=== PATIENT | male | born 1950 | race Caucasian/White ===

== ENCOUNTER 2020-03-05 07:09 | Outpatient (REF) | payer BC, SELFPAY | END 2020-03-05 07:10 | disposition home or self-care (01) | LOC: HO.LAB 07:09 | PROVIDERS: PCP Hospitalist; Visit Provider Internal Medicine | DX: Z20.828 Contact with and (suspected) exposure to other viral communicable diseases (principal) | CPT/HCPCS: C9803; U0003 ==

== ENCOUNTER 2020-03-18 09:28 | Outpatient (REF) | payer BC, SELFPAY | END 2020-03-18 09:29 | disposition home or self-care (01) | LOC: HO.LAB 09:28 | PROVIDERS: PCP Hospitalist; Visit Provider Internal Medicine | DX: Z20.822 Contact with and (suspected) exposure to COVID-19 (principal) | CPT/HCPCS: 36415; C9803; U0003 ==

== ENCOUNTER 2024-02-22 13:52 | Outpatient (AMB) | payer MEDICARE, SELFPAY ==
--- NOTE | 2024-02-22 14:08 | AM.OFFWIN_ITS ---
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 Patient Tobacco Use Status: Never used Tobacco Allergies No Known Allergies Allergy (Unverified 02/22/24 14:14) Do you need a note to return to daycare/school/sports/work: No HPI CONTROLLER COAL OR ORE Lower LT jaw pin HPI Details 73-year-old male presents to the office for a sick visit. For the past 6 weeks or so patient is experiencing shooting pain on the left side of the face around the jaw. The pain comes in bursts. Mostly associated with chewing or moving the head to a particular position. He was initially seen by a dentist and any teeth infection has been ruled out. Subsequently he had his wisdom tooth removed and patient tolerated the procedure well. However he continues to have this shooting pain. No associated tearing of the left eye. He sometimes has difficulty chewing and chews on the right side. No difficulty swallowing. No vision changes. On a different note, patient gives history of ADHD and is on clonazepam for a psychiatrist. He does not have a primary care provider. [facility] Social History Patient Tobacco Use Status: Never used Tobacco Physical Exam Vital Signs: Last Vital Signs Pulse 62 02/22/24 14:14 BP 112/80 02/22/24 14:14 Pulse Ox 96 02/22/24 14:14 Oxygen Delivery Method Room Air 02/22/24 14:14 BMI result Body Mass Index 26.7 Const General: cooperative and healthy appearing Nutritional Appearance: well nourished Orientation/consciousness: patient oriented x3 Limitations: no limitations HEENT Other: Face: On tapping, the left temporal side no triggers of pain elicited. Patient able to move his jaw sideways, open and close his jaw without any discomfort. Head: Yes normal to inspection Eyes General: appearance normal, both eyes and all related structures Neck Neck: Yes normal visual inspection Chest Chest palpation & inspection: normal palpation of entire chest wall Resp Effort & Inspection: normal respiratory effort Neuro General: patient oriented x3 Assessment & Plan Assessment & Plan (1) Jaw pain: Code(s): R68.84 - Jaw pain Plan: Possibilities include musculoskeletal or possibility of trigeminal neuralgia. Prescription for meloxicam and cyclobenzaprine given. Advised him to follow-up in my office in 2 weeks and I will make an attempt to get him a primary care provider. Coding Level of Care Code Est Pt Level 4 (64926) Diagnoses Jaw pain R68.84
[2024-02-22 14:14] VITALS: BP 112/80; PULSE 62; O2SAT 96; BMI 26.7
== END 2024-02-22 15:01 | disposition home or self-care (01) ==
PROVIDERS: Visit Provider Internal Medicine
DX: R68.84 Jaw pain (principal)

== ENCOUNTER → 2024-02-22 13:52 | Outpatient (BNVA) | payer MEDICARE, SELFPAY | PROVIDERS: Visit Provider Internal Medicine | DX: R68.84 Jaw pain (principal) | CPT/HCPCS: 99212 ==

== ENCOUNTER 2024-03-06 09:53 | Outpatient (AMB) | payer MEDICARE, SELFPAY ==
--- NOTE | 2024-03-06 10:23 | A.OFFPC_ITS ---
Vital Signs 03/06/24 10:24 Height 5 ft 9 in Weight 179 lb 2 oz BMI 26.4 BP 100/64 Blood Pressure Location Lt brachial Position Sitting Pulse 86 Pulse Source Pulse Oximeter Pulse Oximetry (%) 98 Oxygen Delivery Method Room Air Intake Visit Reasons: establish care/ 2 week follow up Intake Note: Patient is a new patient here to establish care for Glaucoma, Cholesterol, ADD. Transferring care from Dr Kunal Enriquez ([facility]). Medical records have not been requested and have not received. Pt decline flu shot today. Lens Generator Required: No Metal Bending Machine Operator: Not Required per policy Accompanied by: Self / Same As Patient Allergies [id number] Reductase Inhibitor Allergy (Severe, Verified 03/06/24 10:29) Foot pain Medication List - Last Reconciled 03/06/24 by Babak Duong MD clonazepam 1 mg PO BEDTIME PRN dextroamphetamine-amphetamine 30 mg 1 tab PO BID latanoprost 0.005% 1 drp ophthalmic (eye) BEDTIME timolol maleate 0.5% 1 drp ophthalmic (eye) BID trazodone 100 mg PO BEDTIME PRN Tobacco use date assessed: 03/06/24 Fall risk assessment: No Falls in past year Last assessed Fall Risk: 03/06/24 Dental Screening Dental Screen Date: 03/06/24 Did you have a dental visit in the last 12 months?: Yes Did you have a dental problem in the last 6 months where you did not have access to dental care?: No Was dental information given to patient?: Patient has dentist HPI establish care/ 2 week follow up HPI Details 73 yr old female presents to the office for a follow up visit. He wishes to establish primary care here. He is also here follow up on his jaw pain. Did not take the muscle relaxants. Feels there is no improvements in his symptoms. [facility] Surgical History (Updated 03/06/24 @ 10:33 by POLINA Hernández) History of tonsillectomy Social History (Updated 03/06/24 @ 10:23 by POLINA Hernández) Housing: House Alcohol intake: never Patient Tobacco Use Status: Never used Tobacco e-Cigarette/Vaping Use: Never Used Second Hand Smoke Exposure: No service: No Current occupational status: retired Cognitive needs: No Hearing needs: No Vision needs: Yes (Reading glasses) Questionnaire PHQ-9 Over the last 2 weeks, how often have you been bothered by any of the following problems? 1. Little interest or pleasure in doing things: not at all 2. Feeling down, depressed, or hopeless: not at all 3. Trouble falling or staying asleep, or sleeping too much: not at all 4. Feeling tired or having little energy: not at all 5. Poor appetite or overeating: not at all 6. Feeling bad about yourself - or that you are a failure or have let yourself or your family down: not at all 7. Trouble concentrating on things, such as reading the newspaper or watching television: not at all 8. Moving or speaking so slowly that other people could have noticed. Or the opposite - being so fidgety or restless that you have been moving around a lot more than usual: not at all 9. Thoughts that you would be better off or of hurting yourself in some way: not at all Total score: 0 Depression Screening Interpretation: Negative Depression Screening Done: Yes Source: Developed by Drs. Harry Hutchison, Mayuri Bryson, Abimael Rogers and colleagues, with an educational nena from [employer]. Thrive Questionnaire Date Thrive assessed: 03/06/24 I am a: Patient What is your living situation today?: I have a steady place to live Within the past 12 months, did the food you bought not last and you didn't have the money to get more?: Never true Within the past 12 months, did you worry whether your food would run out before you got money to buy more?: Never true Do you have trouble paying for medicines?: No Do you have trouble getting transportation to medical appointments?: No Do you have trouble paying your heating and electricity bill?: No Do you have trouble taking care of your child, family member or friend?: No Do you have trouble with day-to-day activities such as bathing, preparing meals, shopping, managing finances, etc.?: No Are you currently unemployed and looking for a job?: No Are you interested in more education?: No Please select the resources that you would like help with: None Currently or been in a relationship where the following occur: No concerns reported THRIVE Score: 0 AUDIT C Alcohol Use Questionnaire (AUDIT-C) 1. How often do you have a drink containing alcohol?: Never 2. How many drinks containing alcohol do you have on a typical day when you are drinking?: 1 or 2 3. How often do you have six or more drinks on one occasion?: Never Total Score: 0 HERNÁN-7 AMB Questionnaire HERNÁN-7 Date HERNÁN - 7 assessed: 03/06/24 Feeling nervous, anxious, or on edge: 0 = Not at all Not being able to stop or control worryin = Not at all Worrying too much about different things: 0 = Not at all Trouble relaxin = Not at all Being so restless that it is hard to sit still: 0 = Not at all Becoming easily annoyed or irritable: 0 = Not at all Feeling afraid as if something awful might happen: 0 = Not at all Total HERNÁN-7 score (0-4 normal; 5-9 mild; 10-14 moderate; 15-21 severe): 0 Source: Developed by Drs. Harry Hutchison, Mayuri Bryson, Abimael Rogers and colleagues, with an educational nena from [employer]. Physical exam (Primary Care) Vital Signs: Last Vital Signs Pulse 86 03/06/24 10:24 BP 100/64 03/06/24 10:24 Pulse Ox 98 03/06/24 10:24 Oxygen Delivery Method Room Air 03/06/24 10:24 BMI result Body Mass Index 26.4 Tobacco/Smoking Status: Tobacco use Status Tobacco use date assessed 03/06/24 03/06/24 10:34 Patient Tobacco Use Status Never used Tobacco 03/06/24 10:34 e-Cigarette/Vaping Use Never Used 03/06/24 10:34 PHQ-9: PHQ-9 Score PHQ-9: Total score 0 03/06/24 10:35 Depression Screening Interpretation: Negative Thrive Assessment: Date of Thrive Assessment Date Thrive assessed 03/06/24 03/06/24 10:34 Currently or been in a relationship where the following occur: No concerns reported Coding Level of Care Code Est Pt Level 3 (88160) Complex EM visit Add On G2211 Diagnoses Trigeminal neuralgia of left side of face G50.0 Assessment & Plan Assessment & Plan (1) Trigeminal neuralgia of left side of face: Code(s): G50.0 - Trigeminal neuralgia Plan: Patient very sensitive to medications. A neurology appt to be obtained before starting any empiric treatment.
[2024-03-06 10:24] VITALS: BP 100/64; PULSE 86; O2SAT 98; BMI 26.4
== END 2024-03-06 11:14 | disposition home or self-care (01) ==
PROVIDERS: Visit Provider Internal Medicine
DX: G50.0 Trigeminal neuralgia (principal)

== ENCOUNTER → 2024-03-06 09:53 | Outpatient (BNVA) | payer MEDICARE, SELFPAY | PROVIDERS: Visit Provider Internal Medicine | DX: G50.0 Trigeminal neuralgia (principal) | CPT/HCPCS: 96127; 99212 ==

== ENCOUNTER → 2024-04-13 08:02 | Outpatient (BNVA) | DX: G50.0 Trigeminal neuralgia (principal) | CPT/HCPCS: 96127 ==

== ENCOUNTER 2024-09-12 09:33 | Outpatient (AMB) | payer MEDICARE, SELFPAY ==
--- NOTE | 2024-09-12 09:44 | A.OFFVIS_ITS ---
Vital Signs 09/12/24 09:48 Height 5 ft 9 in Weight 167 lb BMI 24.7 BP 110/76 Blood Pressure Location Rt brachial Position Sitting Pulse 92 Pulse Source Pulse Oximeter Pulse Oximetry (%) 97 Oxygen Delivery Method Room Air Intake Visit Reasons: colo screen Intake Note: New pt for colo consult, recall. Last colo 2004?? CC; Pt denies any GI sx or concerns at this time. Legal Consultant Required: No Accompanied by: Self / Same As Patient Allergies Kiohvlq-DEK-HtP Reductase Inhibitor Allergy (Severe, Verified 04/13/24 08:59) Foot pain HPI HPI colo screen: Details: 74 year old? male with past medical history of hyperlipidemia, adult ADHD is here today for pre colonoscopy screening.? Patient was sent to us by his PCP.? Last colonoscopy was over 10 years ago at [facility]. History of to colonoscopy i n the past Patient denies any gastrointestinal symptoms in the past or at present.? Patient does admit to her have occasional constipation and uses MiraLax as needed. Denies any personal or family history of gastrointestinal disease, colon polyps, or CRC.? Denies history of difficulty with sedation or anesthesia in the past.? Negative for history of sleep apnea.? Denies any history of cardiac, renal, pulmonary, or hepatic disease.?? No history of infectious diseases like hepatitis A, B, C, HIV or tuberculosis.? Patient is not on any anticoagulation [facility] Medical History (Updated 09/12/24 @ 09:56 by Trang Merida, [facility]) ADHD, adult residual type Hyperlipidemia Trigeminal neuralgia of left side of face Surgical History History of tonsillectomy Social History Housing: House Alcohol intake: never Patient Tobacco Use Status: Never used Tobacco e-Cigarette/Vaping Use: Never Used Second Hand Smoke Exposure: No service: No Current occupational status: retired Cognitive needs: No Hearing needs: No Vision needs: Yes (Reading glasses) Review of Systems Const Denies weight gain and Denies weight loss ENT Reports no additional complaints, Denies dysphagia and Denies odynophagia Card Reports no additional complaints Resp Reports no additional complaints GI Denies abdominal pain, Denies belching, Denies melena, Denies bloating, Denies change in bowel habits, Denies dysphagia, Denies excessive flatus, Denies dyspepsia, Denies heartburn, Denies diarrhea, Denies loose stools, Denies nausea, Denies odynophagia and Denies vomiting Reports no additional complaints Musc Reports no additional complaints Neuro Reports no additional complaints Psych Reports no additional complaints Endo Reports no additional complaints Physical Exam Vital Signs: Last Vital Signs Pulse 92 09/12/24 09:48 BP 110/76 09/12/24 09:48 Pulse Ox 97 09/12/24 09:48 Oxygen Delivery Method Room Air 09/12/24 09:48 BMI result Body Mass Index 24.7 Const General: healthy appearing, no acute distress and well developed Nutritional Appearance: well nourished Orientation/consciousness: patient oriented x3 Resp Effort & Inspection: normal respiratory effort, able to speak in complete sentences, no tracheal deviation and symmetric chest movement Auscultation: clear to auscultation bilaterally Cardio Rate: regular rate GI Inspection: Yes normal to inspection and No distended Palpation (GI): Soft to palpation, not firm, nontender and No hepatosplenomegaly present Auscultation: normal bowel sounds General: Yes no CVA tenderness Back/Spine/Pelvis Back: no CVA tenderness Skin General skin exam: elasticity normal, turgor normal and dry skin Neuro General: patient oriented x3 Psych Appearance: grossly normal Mental Status: mental status grossly normal Assessment & Plan Assessment & Plan (1) Screen for colon cancer: Code(s): Z12.11 - Encounter for screening for malignant neoplasm of colon Plan Patient denies any GI, cardiac or respiratory symptoms.? Occasional constipation, uses MiraLax as needed. We will send Dulcolax prior to procedure and patient can take it 1 week before to help her move his bowels better. Denies any issues with anesthesia in the past.? Denies any history of sleep apnea.? No history infectious diseases in the past or present.? Not on any anticoagulation therapy.? No family or personal history of colon cancer or polyps.? Patient denies melena, hematochezia, unintentional weight loss or ribbon like stools.? Discussed at length the pre-procedure,? prep, diet & medications as well as what to expect prior, during and after the procedure.?? Stressed the importance of good bowel prep.? Recommended the use of Vaseline or Calmoseptine OTC & baby wipes with bowel movements to promote comfort.? ?Patient verbalizes understanding and agrees to plan of care.? He was given the opportunity to ask questions and all questions answered.? We will see him after the procedure.? Medications: New bisacodyl (Dulcolax (bisacodyl)) Start taking 2 tablet every night 7 days before the procedure and 1 day before procedure take 4 tablets at noon time followed by MiraLax prep 10 mg (2 x 5 mg) PO BEDTIME 16 tabs 0RF Z12.11 - Encounter for screening for malignant neoplasm of colon polyethylene glycol 3350 (Miralax) As directed by gastroenterology department at [facility] 238 grams PO ONCE 238 grams 0RF Z12.11 - Encounter for screening for malignant neoplasm of colon Coding Level of Care Code New Pt Level 3 (01527) Diagnoses Screen for colon cancer Z12.11 Time Spent (min) 40 Comment 30 minutes spent with patient and additional 10 minutes spent reviewing his records
[2024-09-12 09:48] VITALS: BP 110/76; PULSE 92; O2SAT 97; BMI 24.7
--- OUTSIDE RECORDS SUMMARY | 2024-09-12 10:02 | XMS_ITS | Clinical Summary ---
Author Organization [facility] Address [address] [place] [address] Phone Care Team Providers Care Developer Relations Manager Name Role Phone Unavailable Primary Care Provider Unavailabl e Social History Tobacco Use Types Packs/Day Years Used Date Smoking Tobacco: Never Assessed Sex and Gender Information Value Date Recorded Sex Assigned at Not on file Legal Sex Male 10:49 AM EST Gender Identity Not on file Sexual Orientation Not on file Last Filed Vital Signs Vital Sign Reading Time Taken Comments Blood Pressure - - Pulse - - Temperature - - Respiratory Rate - - Oxygen Saturation - - Inhaled Oxygen Concentration - - Weight 80.7 kg (178 lb) 03/19/2024 11:40 AM EST Height - - Body Mass Index - - Plan of Treatment Health Maintenance Due Date Last Done Comments DTaP,Tdap,and Td Vaccines (1 - Tdap) 05/22/1971 Pneumococcal Vaccine: 50+ Years (1 of 1 - PCV) 2002 Zoster Vaccines (1 of 2) 2002 COVID-19 Vaccine (3 - 2023-2 5 season) 2023 10/29/2020, 10/08/2020 Abdominal Aortic Aneurysm (AAA) Screen 03/19/2024 Cholesterol Screening (Lipid Panel) 03/19/2024 Colorectal Cancer Screening: Colonoscopy 03/19/2024 Depression Screening 03/19/2024 Falls Risk Assessment 03/19/2024 Hepatitis C Screening 03/19/2024 Medicare Annual Wellness Visit 03/19/2024 Social Influencers of Health Screening 03/19/2024 Influenza Vaccine (#1) 2024 04/04/2013 RSV Immunization Adult Patients (1 - 1-dose 75+ series) 05/22/2027 HIB Vaccines Aged Out No longer eligi ble based on patient's age to complete this topic HPV Vaccines Aged Out No longer eligi ble based on patient's age to complete this topic Hepatitis A Vaccines Aged Out No long er eligible based on patient's age to complete this topic Hepatitis B Vaccines Aged Out No long er eligible based on patient's age to complete this topic IPV Vaccines Aged Out No longer eligi ble based on patient's age to complete this topic MMR Vaccines Aged Out No longer eligi ble based on patient's age to complete this topic Meningococcal ACWY Vaccine Aged Out N o longer eligible based on patient's age to complete this topic Meningococcal B Vaccine Aged Out No l onger eligible based on patient's age to complete this topic RSV Immunization Patients Under 20 months Aged Out No longer eligible b ased on patient's age to complete this topic Varicella Vaccines Aged Out No longer eligible based on patient's age to complete this topic Insurance [employer] MEDICARE ADVANTAGE
== END 2024-09-12 11:00 | disposition home or self-care (01) ==
LOC: HO.HGI 09:33
PROVIDERS: PCP Internal Medicine; Visit Provider Nurse Practitioner Family
DX: Z12.11 Encounter for screening for malignant neoplasm of colon (principal)
CPT/HCPCS: 99024

== ENCOUNTER → 2024-09-12 09:33 | Outpatient (BNVA) | payer MEDICARE, SELFPAY | PROVIDERS: PCP Internal Medicine; Visit Provider Nurse Practitioner Family | DX: Z12.11 Encounter for screening for malignant neoplasm of colon (principal) | CPT/HCPCS: 99212 ==

== ENCOUNTER 2024-10-12 07:34 | Outpatient (AMB) | payer MEDICARE, SELFPAY ==
--- OUTSIDE RECORDS SUMMARY | 2024-10-12 07:37 | XMS_ITS | Clinical Summary ---
Author Organization [facility] Address [address] [place] [address] Phone Care Team Providers Care Coal Handling Supervisor Name Role Phone Unavailable Primary Care Provider [...] - 2023-2 5 season) 2023 10/29/2020, 10/08/2020 Depression Screening 03/08/2024 Abdominal Aortic Aneurysm (AAA) Screen 03/19/2024 Cholesterol Screening (Lipid Panel) 03/19/2024 Colorectal Cancer Screening: Colonoscopy 03/19/2024 Falls Risk Assessment 03/19/2024 Hepatitis C [...]
--- NOTE | 2024-10-12 08:04 | A.OFFPC_ITS ---
Vital Signs 10/12/24 08:06 Height 5 ft 9 in Weight 164 lb 6 oz BMI 24.3 BP 130/70 Blood Pressure Location Lt brachial Position Sitting Pulse 109 H Pulse Source Pulse Oximeter Temp 97.3 F Temp Source Temporal Artery Scan Pulse Oximetry (%) 97 Oxygen Delivery Method Room Air Intake Visit Reasons: 6mth f/u Intake Note: Patient is here to follow up on Trigeminal neuralgia. 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 Required: No Licensed Retail Supervisor: Not Required per policy Accompanied by: Self / Same As Patient Allergies Olrkcvc-JRN-KuU Reductase Inhibitor Allergy (Severe, Verified 10/12/24 08:06) Foot pain Tobacco use date assessed: 10/12/24 Fall risk assessment: 1 Fall in past year Last assessed Fall Risk: 10/12/24 Dental Screening Dental Screen Date: 04/13/24 [facility] Medical History (Updated 10/12/24 @ 08:29 by Babak Duong MD) Glaucoma ADHD, adult residual type Hyperlipidemia Trigeminal neuralgia of left side of face Surgical History History of tonsillectomy Social History (Updated 10/12/24 @ 08:13 by POLINA Hernández) Housing: House Alcohol intake: current Alcohol intake frequency: holidays/special occasions only Patient Tobacco Use Status: Never used Tobacco e-Cigarette/Vaping Use: Never Used Second Hand Smoke Exposure: No service: No Current occupational status: retired Cognitive needs: No Hearing needs: No Vision needs: Yes (Reading glasses) Questionnaire PHQ-9 Over the last 2 weeks, how often have you been bothered by any of the following problems? 1. Little interest or pleasure in doing things: not at all 2. Feeling down, depressed, or hopeless: not at all 3. Trouble falling or staying asleep, or sleeping too much: not at all 4. Feeling tired or having little energy: not at all 5. Poor appetite or overeating: not at all 6. Feeling bad about yourself - or that you are a failure or have let yourself or your family down: not at all 7. Trouble concentrating on things, such as reading the newspaper or watching television: not at all 8. Moving or speaking so slowly that other people could have noticed. Or the opposite - being so fidgety or restless that you have been moving around a lot more than usual: not at all 9. Thoughts that you would be better off or of hurting yourself in some way: not at all Total score: 0 Depression Screening Interpretation: Negative Depression Screening Done: Yes Source: Developed by Drs. Harry Hutchison, Mayuri Bryson, Abimael Rogers and colleagues, with an educational nena from [employer]. Thrive Questionnaire Date Thrive assessed: 10/06/24 I am a: Patient What is your living situation today?: I have a steady place to live Within the past 12 months, did the food you bought not last and you didn't have the money to get more?: Never true Within the past 12 months, did you worry whether your food would run out before you got money to buy more?: Never true Do you have trouble paying for medicines?: No Do you have trouble getting transportation to medical appointments?: No Do you have trouble paying your heating and electricity bill?: No Do you have trouble taking care of your child, family member or friend?: No Do you have trouble with day-to-day activities such as bathing, preparing meals, shopping, managing finances, etc.?: No Are you currently unemployed and looking for a job?: No Are you interested in more education?: No Please select the resources that you would like help with: None Currently or been in a relationship where the following occur: No concerns reported THRIVE Score: 0 AUDIT C Alcohol Use Questionnaire (AUDIT-C) 1. How often do you have a drink containing alcohol?: Never Total Score: 0 HERNÁN-7 AMB Questionnaire HERNÁN-7 Date HERNÁN - 7 assessed: 04/13/24 Feeling nervous, anxious, or on edge: 0 = Not at all Not being able to stop or control worryin = Not at all Worrying too much about different things: 0 = Not at all Trouble relaxin = Not at all Being so restless that it is hard to sit still: 1 = Several days Becoming easily annoyed or irritable: 0 = Not at all Feeling afraid as if something awful might happen: 1 = Several days Total HERNÁN-7 score (0-4 normal; 5-9 mild; 10-14 moderate; 15-21 severe): 2 Source: Developed by Drs. Harry Hutchison, Mayuri Bryson, Abimael Rogers and colleagues, with an educational nena from [employer]. Physical exam (Primary Care) Vital Signs: Last Vital Signs Temp 97.3 F 10/12/24 08:06 Pulse 109 H 10/12/24 08:06 BP 130/70 10/12/24 08:06 Pulse Ox 97 10/12/24 08:06 Oxygen Delivery Method Room Air 10/12/24 08:06 BMI result Body Mass Index 24.3 Tobacco/Smoking Status: Tobacco use Status Tobacco use date assessed 10/12/24 10/12/24 08:14 Patient Tobacco Use Status Never used Tobacco 10/12/24 08:14 e-Cigarette/Vaping Use Never Used 10/12/24 08:14 PHQ-9: PHQ-9 Score PHQ-9: Total score 0 10/12/24 08:14 Depression Screening Interpretation: Negative Thrive Assessment: Date of Thrive Assessment Date Thrive assessed 10/06/24 10/12/24 08:14 Currently or been in a relationship where the following occur: No concerns reported Coding Level of Care Code Est Pt Level 4 (52236) Complex EM visit Add On G2211 Diagnoses Trigeminal neuralgia of left side of face G50.0 ADHD, adult residual type F90.8 Hyperlipidemia E78.5 Glaucoma H40.9 Assessment & Plan Assessment & Plan (1) Trigeminal neuralgia of left side of face: Code(s): G50.0 - Trigeminal neuralgia Category: Medical Plan: Condition has resolved (2) ADHD, adult residual type: Code(s): F90.8 - Attention-deficit hyperactivity disorder, other type Category: Medical Plan: Patient sees a psychiatrist. Gets Clonazepam and adderal from them (3) Hyperlipidemia: Code(s): E78.5 - Hyperlipidemia, unspecified Category: Medical Plan: BW ordered, will call with results (4) Glaucoma: Code(s): H40.9 - Unspecified glaucoma Category: Medical Plan: Continue to follow up with Eye MD. He is reluctant to get the laser therapy. Plan History of Present Illness - The patient is a 74-year-old male presenting with management of glaucoma and attention deficit disorder. - Glaucoma: Managed with timolol and latanoprost; patient prefers drops over laser therapy due to fear of adverse reactions. - Attention Deficit Disorder: Managed with 30 mg Adderall twice daily; cautious about medication dependency, uses clonazepam as needed. - Preventative Care: Awaiting colonoscopy scheduling; history of statin intolerance and concern about prostate health. Social History Review of Systems - Neurological: Denies current neurological symptoms. - Musculoskeletal: Reports intermittent knee pain without pain during walking. Physical Exam General: Cooperative and healthy appearing Nutritional Appearance: Well nourished Orientation/consciousness: Patient oriented x3 Limitations: No limitations Head: Normal to inspection General: Appearance normal, both eyes and all related structures Neck: Normal visual inspection Chest: Normal palpation of entire chest wall Respiratory: N ormal respiratory effort Neurology: Gone Results Plan 1. Glaucoma - Continue current medications: timolol and latanoprost. - Consider laser therapy if medication efficacy decreases. 2. Attention Deficit Disorder - Continue Adderall 30 mg twice daily. - Use clonazepam as needed for headaches. 3. Enlarged Prostate - Monitor prostate health; no immediate family history of prostate issues. 4. Preventative Care - Await confirmation for colonoscopy scheduling. - Perform fasting blood work to assess kidney and liver functions. Discussion Notes During the visit, we discussed the management of glaucoma with current medications and the potential for laser therapy if necessary. We also reviewed the use of Adderall for attention deficit disorder and the cautious use of clonazepam for headaches. Preventative care measures, including the scheduling of a colonoscopy and the need for fasting blood work, were also addressed. Patient Instructions - Continue using timolol and latanoprost for glaucoma management. - Take Adderall 30 mg twice daily as prescribed. - Use clonazepam as needed for headaches. - Await confirmation for colonoscopy scheduling before starting preparation. - Schedule and complete fasting blood work for kidney and liver function assessment.
[2024-10-12 08:06] VITALS: BP 130/70; PULSE 109; TEMP 36.3; O2SAT 97; BMI 24.3
== END 2024-10-12 08:31 | disposition home or self-care (01) ==
LOC: HO.HMCH 07:34
PROVIDERS: PCP Internal Medicine; Visit Provider Internal Medicine
DX: G50.0 Trigeminal neuralgia (principal); F90.8 Attention-deficit hyperactivity disorder, other type; E78.5 Hyperlipidemia, unspecified; H40.9 Unspecified glaucoma

== ENCOUNTER → 2024-10-12 07:34 | Outpatient (BNVA) | payer MEDICARE, SELFPAY | PROVIDERS: PCP Internal Medicine; Visit Provider Internal Medicine | DX: G50.0 Trigeminal neuralgia (principal); F90.8 Attention-deficit hyperactivity disorder, other type; E78.5 Hyperlipidemia, unspecified; H40.9 Unspecified glaucoma; F98.8 Other specified behavioral and emotional disorders with onset usually occurring in childhood and adolescence; Z79.899 Other long term (current) drug therapy | CPT/HCPCS: 96127; 99212 ==

== ENCOUNTER 2024-10-16 13:29 | Outpatient (REF) | payer MEDICARE, SELFPAY ==
--- OUTSIDE RECORDS SUMMARY | 2024-10-16 13:41 | XMS_ITS | Clinical Summary ---
Author Organization [facility] Address [address] [place] [address] Phone Care Team Providers Care Iphone Developer Name Role Phone Unavailable Primary Care Provider [...]
[2024-10-16 16:16] LABS: Hematocrit 48.4 % (42.0-52.0); Hemoglobin 17.5 g/dl (14.0-18.0); Mean Corpuscular HGB Conc 36.2 g/dl (31.0-36.0); Mean Corpuscular Hemoglobin 31.5 pg (27.0-33.0); Mean Corpuscular Volume 87.2 fL (80.0-98.0); NRBC Abs Auto 0.000 X10*3/uL (0.0-0.012); NRBC Pct Auto 0.0 /100WBC (0.0-0.2); Platelet Count 189 X10*3/uL (160-400); Red Blood Count 5.55 X10*6/uL (4.60-5.80); White Blood Count 7.5 X10*3/uL (4.8-10.8)
[2024-10-16 16:36] LABS: Appearance Urine Clear; Glucose Urine UA >=1000 mg/dL (Negative); PH 5.5 (5.0-9.0); Specific Gravity - Urine >= 1.030 (1.005-1.025); UMIC TRIGGER UA YES
[2024-10-16 16:59] LABS: Thyroid Stimulating Hormone 1.59 uIU/mL (0.32-4.0)
[2024-10-16 17:03] LABS: Folate 18.6 ng/mL (> or = 4.0); Vitamin B12 1242 pg/mL (200-900)
[2024-10-16 18:32] LABS: Alanine Aminotransferase 28 U/L (0-40); Albumin Level 4.5 g/dL (3.5-5.0); Alkaline Phosphatase 73 U/L (39-117); Anion Gap 15 (12-20); Aspartate Amino Transferase 27 U/L (5-37); Blood Urea Nitrogen 17 mg/dL (9-16); Calcium 9.6 mg/dL (8.4-10.2); Carbon Dioxide 28 mmol/L (22-29); Chloride 100 mmol/L (96-108); Cholesterol 235 mg/dL (<200); Estimated Glomerular Filt Rate > 60; HDL Cholesterol 44 mg/dL (>40); Potassium 4.9 mmol/L (3.3-5.1); Sodium 138 mmol/L (135-145); Total Protein 7.3 g/dL (6.5-8.0); Triglycerides 298 mg/dL (<150)
== END 2024-10-16 13:30 | disposition home or self-care (01) ==
LOC: HO.HMGCLDS 13:29
PROVIDERS: PCP Internal Medicine; Visit Provider Internal Medicine
DX: G50.0 Trigeminal neuralgia (principal); Z13.6 Encounter for screening for cardiovascular disorders; Z13.29 Encounter for screening for other suspected endocrine disorder
CPT/HCPCS: 36415; 80048; 80061; 80076; 81001; 82607; 82746; 84443; 85027

== ENCOUNTER 2024-11-15 11:11 | Outpatient (REF) | payer MEDICARE, SELFPAY | END 2024-11-15 11:12 | disposition home or self-care (01) | LOC: HO.HMGCLDS 11:11 | PROVIDERS: PCP Internal Medicine; Visit Provider Internal Medicine | DX: E11.9 Type 2 diabetes mellitus without complications (principal) | CPT/HCPCS: 36415; 83036; 99212 ==

== ENCOUNTER 2024-11-15 11:11 | Outpatient (AMB) | payer MEDICARE, SELFPAY ==
--- NOTE | 2024-11-15 11:27 | MHC.PC.OV ---
Vital Signs 11/15/24 11:28 Height 5 ft 9 in Weight 165 lb 8 oz BMI 24.4 BP 132/74 Blood Pressure Location Lt brachial Position Sitting Pulse 76 Pulse Source Pulse Oximeter Temp 96.9 F Temp Source Temporal Artery Scan Pulse Oximetry (%) 98 Oxygen Delivery Method Room Air Intake Visit Reasons: discuss new diabetes dx/management Intake Note: Patient is here to follow up on Discuss new DM dx and management. Rail Switchman Required: No Procurement Consultant: Present Accompanied by: Spouse Allergies [id number] Reductase Inhibitor Allergy (Severe, Verified 11/15/24 11:28) Foot pain Tobacco use date assessed: 11/15/24 Fall risk assessment: 1 Fall in past year Last assessed Fall Risk: 11/15/24 Dental Screening Dental Screen Date: 04/13/24 [facility] Medical History (Updated 11/15/24 @ 11:59 by Babak Duong MD) Diabetes mellitus Glaucoma ADHD, adult residual type Hyperlipidemia Trigeminal neuralgia of left side of face Surgical History History of tonsillectomy Social History Housing: House Alcohol intake: current Alcohol intake frequency: holidays/special occasions only Patient Tobacco Use Status: Never used Tobacco e-Cigarette/Vaping Use: Never Used Second Hand Smoke Exposure: No service: No Current occupational status: retired Cognitive needs: No Hearing needs: No Vision needs: Yes (Reading glasses) Questionnaire Thrive Questionnaire Date Thrive assessed: 10/06/24 I am a: Patient What is your living situation today?: I have a steady place to live Within the past 12 months, did the food you bought not last and you didn't have the money to get more?: Never true Within the past 12 months, did you worry whether your food would run out before you got money to buy more?: Never true Do you have trouble paying for medicines?: No Do you have trouble getting transportation to medical appointments?: No Do you have trouble paying your heating and electricity bill?: No Do you have trouble taking care of your child, family member or friend?: No Do you have trouble with day-to-day activities such as bathing, preparing meals, shopping, managing finances, etc.?: No Are you currently unemployed and looking for a job?: No Are you interested in more education?: No Please select the resources that you would like help with: None Currently or been in a relationship where the following occur: No concerns reported THRIVE Score: 0 HERNÁN-7 AMB Questionnaire HERNÁN-7 Date HERNÁN - 7 assessed: 04/13/24 Source: Developed by Drs. Harry Hutchison, Mayuri Bryson, Abimael Rogers and colleagues, with an educational nena from [employer]. Physical exam (Primary Care) Vital Signs: Last Vital Signs Temp 96.9 F 11/15/24 11:28 Pulse 76 11/15/24 11:28 BP 132/74 11/15/24 11:28 Pulse Ox 98 11/15/24 11:28 Oxygen Delivery Method Room Air 11/15/24 11:28 BMI result Body Mass Index 24.4 Tobacco/Smoking Status: Tobacco use Status Tobacco use date assessed 11/15/24 11/15/24 11:46 Patient Tobacco Use Status Never used Tobacco 11/15/24 11:46 e-Cigarette/Vaping Use Never Used 11/15/24 11:46 Thrive Assessment: Date of Thrive Assessment Date Thrive assessed 10/06/24 11/15/24 11:46 Currently or been in a relationship where the following occur: No concerns reported Coding Level of Care Code Est Pt Level 4 (15832) Complex EM visit Add On G2211 Diagnoses Diabetes mellitus E11.9 Assessment & Plan Assessment & Plan (1) Diabetes mellitus: Code(s): E11.9 - Type 2 diabetes mellitus without complications Category: Medical Plan: History of Present Illness - The patient is a 74-year-old male presenting with high blood sugar levels. - Diagnosed with Type 2 Diabetes Mellitus, attributed to age-related insulin production decline. - Reports weight loss, increased thirst, and frequent urination as symptoms. - Initially attempted to control blood sugar through diet alone, but medication was deemed necessary. - Prescribed metformin, with a gradual increase in dosage to manage blood sugar levels. - Advised of potential gastrointestinal side effects from metformin, expected to diminish over time. - Informed of serious complications from untreated diabetes, including blindness and stroke. - Noted lethargy during physical activity, anticipated to improve with treatment. Social History - The patient reports engaging in physical activities such as climbing hills, although he has recently experienced lethargy during these activities. Review of Systems - General: Reports weight loss. - Endocrine: Reports increased thirst and frequent urination. - Neurological: Reports feeling lethargic during physical activity. Physical Exam General: Cooperative and healthy appearing Nutritional Appearance: Well nourished Orientation/consciousness: Patient oriented x3 Limitations: No limitations Head: Normal to inspection General: Appearance normal, both eyes and all related structures Neck: Normal visual inspection Chest: Normal palpation of entire chest wall Respiratory: N ormal respiratory effort Neurology: Patient oriented x3, reports feeling some weakness and lethargy. Results - Labs: Previous blood work indicated high blood sugar levels. - Labs: Hemoglobin A1c test recommended to assess long-term glucose control. Plan 1. Type 2 Diabetes Mellitus - Start metformin 500 mg daily, increasing to twice daily after three days. - Monitor for gastrointestinal discomfort, expected to resolve with continued use. - Discuss risks of untreated diabetes, including blindness and stroke. - Perform hemoglobin A1c test to monitor glucose control. - Schedule follow-up in one month to evaluate treatment response and adjust as necessary. Discussion Notes I discussed with the patient that his blood sugar levels are high, confirming a diagnosis of Type 2 Diabetes Mellitus. We talked about the necessity of starting metformin to manage his condition and the importance of adhering to the prescribed regimen. I explained the potential side effects of metformin, such as gastrointestinal discomfort, and reassured him that these should subside with continued use. We also reviewed the serious complications that could arise from untreated diabetes, including blindness and stroke. I recommended a hemoglobin A1c test to better understand his glucose control and advised a follow-up appointment in one month to assess his progress and make any necessary adjustments to his treatment plan. Patient Instructions - Start taking metformin 500 mg once daily, then increase to twice daily after three days. - Be aware of possible stomach discomfort or diarrhea, which should improve with time. - Follow a low-sugar diet to help manage blood sugar levels. - Get a hemoglobin A1c test done today to check long-term blood sugar control. - Schedule a follow-up appointment in one month to review your progress. Orders: Orders Hemoglobin A1c Today E11.9 - Type 2 diabetes mellitus without complications Medications: New metformin 500 mg PO BID 180 tabs 1RF
[2024-11-15 11:28] VITALS: BP 132/74; PULSE 76; TEMP 36.1; O2SAT 98; BMI 24.4
--- OUTSIDE RECORDS SUMMARY | 2024-11-15 14:22 | XMS_ITS | Clinical Summary ---
Author Organization [facility] Address [address] [place] [address] Phone Care Team Providers Care Surface Ship Usw Supervisor Name Role Phone Unavailable Primary Care [...] 2002 Zoster Vaccines (1 of 2) 2002 Depression Screening 03/08/2024 Abdominal Aortic Aneurysm (AAA) Screen 03/19/2024 Cholesterol Screening (Lipid Panel) 03/19/2024 Colorectal Cancer Screening: Colonoscopy 03/19/2024 Falls Risk Assessment 03/19/2024 Hepatitis C Screening 03/19/2024 Medicare Annual Wellness Visit 03/19/2024 Social Influencers of Health Screening 03/19/2024 COVID-19 Vaccine (3 - 2024-2 6 season) 2024 10/29/2020, 10/08/2020 Influenza Vaccine (#1) 2024 04/04/2013 RSV Immunization [...]
== END 2024-11-15 12:01 | disposition home or self-care (01) ==
LOC: HO.HMCH 11:12
PROVIDERS: PCP Internal Medicine; Visit Provider Internal Medicine
DX: E11.9 Type 2 diabetes mellitus without complications (principal)

== ENCOUNTER 2024-12-21 08:59 | Outpatient (AMB) | payer MEDICARE, SELFPAY ==
--- NOTE | 2024-12-21 09:42 | A.OFFPC_ITS ---
Vital Signs 12/21/24 09:43 Height 5 ft 9 in Weight 167 lb 8 oz BMI 24.7 BP 136/76 Blood Pressure Location Lt brachial Position Sitting Pulse 96 Pulse Source Pulse Oximeter Temp 97.1 F Temp Source Temporal Artery Scan Pulse Oximetry (%) 98 Oxygen Delivery Method Room Air Intake Visit Reasons: 1mth f/u Intake Note: Patient is here to follow up on DM. Lot Boss Required: No Quality Control Tester: Not Required per policy Accompanied by: Self / Same As Patient Allergies Ukcrgtu-FOQ-RzF Reductase Inhibitor Allergy (Severe, Verified 12/21/24 09:43) Foot pain Tobacco use date assessed: 12/21/24 Fall risk assessment: No Falls in past year Last assessed Fall Risk: 12/21/24 Dental Screening Dental Screen Date: 04/13/24 [facility] Medical History (Updated 11/15/24 @ 11:59 by Babak Duong MD) Diabetes mellitus Glaucoma ADHD, adult residual type Hyperlipidemia Trigeminal neuralgia of left side of face Surgical History History of tonsillectomy Social History Housing: House Alcohol intake: current Alcohol intake frequency: holidays/special occasions only Patient Tobacco Use Status: Never used Tobacco e-Cigarette/Vaping Use: Never Used Second Hand Smoke Exposure: No service: No Current occupational status: retired Cognitive needs: No Hearing needs: No Vision needs: Yes (Reading glasses) Questionnaire Thrive Questionnaire Date Thrive assessed: 10/06/24 I am a: Patient What is your living situation today?: I have a steady place to live Within the past 12 months, did the food you bought not last and you didn't have the money to get more?: Never true Within the past 12 months, did you worry whether your food would run out before you got money to buy more?: Never true Do you have trouble paying for medicines?: No Do you have trouble getting transportation to medical appointments?: No Do you have trouble paying your heating and electricity bill?: No Do you have trouble taking care of your child, family member or friend?: No Do you have trouble with day-to-day activities such as bathing, preparing meals, shopping, managing finances, etc.?: No Are you currently unemployed and looking for a job?: No Are you interested in more education?: No Please select the resources that you would like help with: None Currently or been in a relationship where the following occur: No concerns reported THRIVE Score: 0 HERNÁN-7 AMB Questionnaire HERNÁN-7 Date HERNÁN - 7 assessed: 04/13/24 Source: Developed by Drs. Harry Hutchison, Mayuri Bryson, Abimael Rogers and colleagues, with an educational nena from [employer]. Physical exam (Primary Care) Vital Signs: Last Vital Signs Temp 97.1 F 12/21/24 09:43 Pulse 96 12/21/24 09:43 BP 136/76 12/21/24 09:43 Pulse Ox 98 12/21/24 09:43 Oxygen Delivery Method Room Air 12/21/24 09:43 BMI result Body Mass Index 24.7 Tobacco/Smoking Status: Tobacco use Status Tobacco use date assessed 12/21/24 12/21/24 09:47 Patient Tobacco Use Status Never used Tobacco 12/21/24 09:43 e-Cigarette/Vaping Use Never Used 12/21/24 09:43 Thrive Assessment: Date of Thrive Assessment Date Thrive assessed 10/06/24 12/21/24 09:43 Currently or been in a relationship where the following occur: No concerns reported Coding Level of Care Code Est Pt Level 4 (79636) Diagnoses Diabetes mellitus E11.9 Assessment & Plan Assessment & Plan (1) Diabetes mellitus: Code(s): E11.9 - Type 2 diabetes mellitus without complications Category: Medical Plan: History of Present Illness - The patient is a 74-year-old male presenting with concerns about elevated A1c levels and management of Type 2 Diabetes Mellitus. - Reports consistently high A1c levels despite dietary and exercise efforts, including limiting carbohydrates and sugars and climbing hills regularly. - Currently on metformin twice daily but questions its effectiveness. - Recent blood glucose level was 240 mg/dL, indicating poor control. - Experiences insomnia, managed with trazodone and clonazepam as needed. Social History - Exercise: Engages in regular physical activity by climbing hills every other day. Review of Systems - Endocrine: Reports elevated blood glucose levels. - Neurological: Reports insomnia, managed with trazodone and clonazepam. Physical Exam General: Cooperative and healthy appearing Nutritional Appearance: Well nourished Orientation/consciousness: Patient oriented x3 Limitations: No limitations Head: Normal to inspection General: Appearance normal, both eyes and all related structures Neck: Normal visual inspection Chest: Normal palpation of entire chest wall Respiratory: N ormal respiratory effort Neurology: Patient oriented x3, able to drive and perform all activities of daily living Results - Labs: Recent blood glucose level was 240 mg/dL. Plan - Increase metformin dosage to 2 tablets in the morning and 2 tablets at night. - Initiate Jardiance once daily to aid in blood glucose control. - Order blood work to monitor A1c levels and overall glucose control. - Follow-up appointment scheduled in three months to assess treatment efficacy. Discussion Notes During the consultation, I discussed with the patient the need to increase the metformin dosage and introduce Jardiance to better manage his Type 2 Diabetes Mellitus. We talked about the importance of regular blood glucose monitoring and scheduled a follow-up in three months to evaluate the effectiveness of the treatment adjustments. Patient Instructions - Take 2 tablets of metformin in the morning and 2 tablets at night. - Take Jardiance once daily as prescribed. - Monitor blood glucose levels regularly and report any significant changes. - Attend the follow-up appointment in three months. Orders: Orders Complete Blood Count no Diff Today E11.9 - Type 2 diabetes mellitus without complications Liver Panel Today E11.9 - Type 2 diabetes mellitus without complications Lipid Panel Today E11.9 - Type 2 diabetes mellitus without complications Thyroid Stimulating Hormone Today E11.9 - Type 2 diabetes mellitus without complications UA and rflx microscopic Today E11.9 - Type 2 diabetes mellitus without complications Basic Metabolic Panel Today E11.9 - Type 2 diabetes mellitus without complications Hemoglobin A1c Today E11.9 - Type 2 diabetes mellitus without complications Microalbumin, Random (w Creat) Today E11.9 - Type 2 diabetes mellitus without complications Medications: New empagliflozin (Jardiance) 25 mg PO DAILY 90 tabs 1RF Changed From metformin 500 mg PO BID 180 tabs 1RF To metformin 1,000 mg (2 x 500 mg) PO BID 360 tabs 1RF 90 days
[2024-12-21 09:43] VITALS: BP 136/76; PULSE 96; TEMP 36.2; O2SAT 98; BMI 24.7
== END 2024-12-21 10:10 | disposition home or self-care (01) ==
LOC: HO.HMCH 09:00
PROVIDERS: PCP Internal Medicine; Visit Provider Internal Medicine
DX: E11.9 Type 2 diabetes mellitus without complications (principal)

== ENCOUNTER → 2024-12-21 08:59 | Outpatient (BNVA) | payer MEDICARE, SELFPAY | PROVIDERS: PCP Internal Medicine; Visit Provider Internal Medicine | DX: E11.9 Type 2 diabetes mellitus without complications (principal); Z79.84 Long term (current) use of oral hypoglycemic drugs | CPT/HCPCS: 99212 ==

== ENCOUNTER 2025-02-06 05:35 | Day surgery (SDC) | payer MEDICARE, SELFPAY ==
--- OUTSIDE RECORDS SUMMARY | 2025-01-25 17:46 | XMS_ITS | Clinical Summary ---
Author Organization [facility] Address [address] [place] [address] Phone Care Team Providers Care Laborer [employer] Name Role Phone Unavailable Primary Care Provider [...] Health Maintenance Due Date Last Done Comments Colorectal Cancer Screening: Colonoscopy 1950 DTaP,Tdap,and Td Vaccines (1 - Tdap) 05/22/1971 Pneumococcal Vaccine: 50+ Years (1 of 1 - PCV) 2002 Zoster Vaccines (1 of 2) 2002 Depression Screening 03/08/2024 Abdominal Aortic Aneurysm (AAA) Screen 03/19/2024 Cholesterol Screening (Lipid Panel) 03/19/2024 Falls Risk Assessment 03/19/2024 Hepatitis C [...]
--- NOTE | 2025-01-31 10:19 | HO.ANESPROP2 ---
Documented by User: Leti Hernandez NP 01/31/25 10:20 HPI - Anesthesia Eval Consult details Narrative: 74yo M for Colonoscopy Anesthesia Pre-Procedure Meds Is the patient on any of the following meds?: SGLT2 Inhib PMFSH Active Problems Active Problems: All Active Problems Diabetes mellitus (Acute) Glaucoma (Acute) Hyperlipidemia (Acute) ADHD, adult residual type (Acute) Trigeminal neuralgia of left side of face (Acute) Past Medical History Medical History Diabetes mellitus Glaucoma ADHD, adult residual type Hyperlipidemia Trigeminal neuralgia of left side of face Surgical History Surgical History H/O colonoscopy History of tonsillectomy Social History Social History Housing: House Alcohol intake: current Alcohol intake frequency: does not drink Patient Tobacco Use Status: Never used Tobacco e-Cigarette/Vaping Use: Never Used Second Hand Smoke Exposure: No Use of substances other than those prescribed or required for medical reasons: No Have you been hit, kicked, punched, or otherwise hurt by someone within the past year? If so, by whom?: No Are you DNR?: No Advance Directives: No Advance Directives Information Provided: Yes service: No Current occupational status: retired Cognitive needs: No Hearing needs: No Vision needs: Yes (Reading glasses) Meds Allergies Allergy/AdvReac Type Severity Reaction Status Date / Time [id number] Reductase Allergy Severe Foot pain Verified 02/06/25 06:23 Inhibitor Home Medications ?Medication ?Instructions ?Recorded ?Confirmed ?Last Taken ?Type latanoprost 0.005 % eye drops 1 drp ophthalmic (eye) BEDTIME 02/22/24 02/06/25 Unknown History timolol maleate 0.5 % eye drops 1 drp ophthalmic (eye) BID 02/22/24 02/06/25 Unknown History clonazepam 1 mg tablet 1 mg PO BEDTIME PRN Anxiety 03/06/24 02/06/25 Unknown History dextroamphetamine-amphetamine 30 1 tab PO BID 03/06/24 02/06/25 Unknown History mg tablet trazodone 50 mg tablet 100 mg PO BEDTIME PRN Insomnia 03/06/24 02/06/25 Unknown History Assessment and Plan Assessment Anesthesia Assessment: Chart Reviewed Documented by User: Imani Banks MD 02/06/25 07:31 [facility] Past Medical History Medical History Diabetes mellitus Glaucoma ADHD, adult residual type Hyperlipidemia Trigeminal neuralgia of left side of face Surgical History Surgical History H/O colonoscopy History of tonsillectomy History of Problems with Anesthesia: No Social History Social History Housing: House Alcohol intake: current Alcohol intake frequency: does not drink Patient Tobacco Use Status: Never used Tobacco e-Cigarette/Vaping Use: Never Used Second Hand Smoke Exposure: No Use of substances other than those prescribed or required for medical reasons: No Have you been hit, kicked, punched, or otherwise hurt by someone within the past year? If so, by whom?: No Are you DNR?: No Advance Directives: No Advance Directives Information Provided: Yes service: No Current occupational status: retired Cognitive needs: No Hearing needs: No Vision needs: Yes (Reading glasses) Meds Allergies Allergy/AdvReac Type Severity Reaction Status Date / Time [id number] Reductase Allergy Severe Foot pain Verified 02/06/25 06:23 Inhibitor Home Medications ?Medication ?Instructions ?Recorded ?Confirmed ?Last Taken ?Type latanoprost 0.005 % eye drops 1 drp ophthalmic (eye) BEDTIME 02/22/24 02/06/25 Unknown History timolol maleate 0.5 % eye drops 1 drp ophthalmic (eye) BID 02/22/24 02/06/25 Unknown History clonazepam 1 mg tablet 1 mg PO BEDTIME PRN Anxiety 03/06/24 02/06/25 Unknown History dextroamphetamine-amphetamine 30 1 tab PO BID 03/06/24 02/06/25 Unknown History mg tablet trazodone 50 mg tablet 100 mg PO BEDTIME PRN Insomnia 03/06/24 02/06/25 Unknown History Exam Airway Mallampati Class: III TM Dist: >3cm Neck ROM: Full Loose/Missing/Broken Teeth: No Heart: RRR Lungs: CTA Assessment and Plan Assessment Anesthesia Assessment: Anesthesia Plan Discussed Final Anesthetic Review History of Problems with Anesthesia: No NPO: Yes ASA Class: II Final Preanesthetic Review: Meds/Allgs Chart Reviewed, Consent Obtained/Reviewed and Anes Risks/Benef Reviewed Patient Risk: Low Procedure Risk: Low Anesthetic Plan Anesthetic Plan: MAC: Disposition: Standard PACU
[2025-01-31 12:05] VITALS: BMI 24.7
[2025-02-06] VITALS (7 sets, daily range): BP systolic 95–126; BP diastolic 64–82; PULSE 61–69; RESP 16–18; TEMP 36.2–36.4; O2SAT 98–100; BMI 24.1
[2025-02-06] MEDS: Lactated Ringers 1,000 ML 100 ML IVCONT (06:22)
[2025-02-06 06:33] LABS: Glucose, Whole Blood 153 mg/dL (60-115)
--- NOTE | 2025-02-06 07:19 | MHC.SHP ---
Pre-Procedural Eval Section A - 24 Hr Update-Section A only Date of Service: 02/06/25 Section B - Complete if H&P > 30 days Chief Complaint: screening Details of Present Illness: For screening colonoscopy, denies GI complaints, had colonoscopy in [facility] 10 years ago Relevant Family History (Specify if Yes): No Relevant Social History: None Present Medications: see Short Stay Collaborative assessment Medical History: Significant History (ADHD, hyperlipidemia, diabetes) Allergies: Allergies Allergy/AdvReac Type Severity Reaction Status Date / Time Pglcoph-BHX-PgX Reductase Allergy Severe Foot pain Verified 02/06/25 06:23 Inhibitor Review of Systems Sugical H&P ROS: Negative: Constitution, Cardiovascular, Respiratory and Gastrointestinal Exam Surgical H&P Exam: Normal: Heart, Normal: Lungs and Normal: Abdomen Plan Diagnosis/Plan: Unchanged I have reviewed the history and physical and performed a pertinent physical examination on my patient. No changes have occurred unless specified. Time Spent With Patient Time: Total time managing care of this patient today ____ minutes.
--- NOTE | 2025-02-06 08:28 | W.PM.OPN ---
Operative Note Operative Note Date of Service: 02/06/25 Narrative: Preop diagnosis: Colon cancer screening Postop diagnosis: 1. Small bowel loops, x2 about 2 mm each at level 15 cm removed with cold forceps 2. Occasional diverticuli, sigmoid Procedure: Colonoscopy with polypectomy using cold forceps Surgeon: Gaetano Swenson MD The patient is a 74-year-old male here for screening colonoscopy as scheduled by the wide area network engineer service. His last colonoscopy was apparently 10 years ago in [facility]. He says he did not have a polyps. He understood the technique of the planned procedure as well as the risks, benefits, and alternatives. The patient was brought to the operating room and placed in left lateral decubitus position under monitored anesthesia care. A surgical time-out was done. A full digital rectal exam was done and this did not reveal any significant anal lesions. The tip of the Olympus colonoscope was gently introduced through the anal orifice advanced with insufflation all the way to the cecum. The cecum was intubated. The cecum was identified by visualization of the ileocecal valve as well as the appendiceal orifice. The cecal mucosa was unremarkable. The scope was gradually withdrawn with careful examination of the entire colonic mucosa being done with scope withdrawal. The patient had adequate bowel prep so it was unlikely that any lesion may have been missed. There was occasional diverticuli in the sigmoid. There was note of 2 very small polyps, about 2 mm each at level 15 cm removed with cold forceps. The rectum was reached and there were no lesions seen. The anal canal was unremarkable. The scope was then withdrawn completely with desufflation The patient tolerated procedure well. There were no immediate complications. Depending on the path report and his overall health, his next colonoscopy be in the next 10 years.
== END 2025-02-06 09:46 | disposition home or self-care (01) ==
PROVIDERS: PCP Internal Medicine; Visit Provider Surgery
PROC: 0DJD8ZZ Inspection of Lower Intestinal Tract, Via Natural or Artificial Opening Endoscopic (ICD-10-PCS; CPT 45378; principal; 2025-02-06 07:30)
DX: Z12.11 Encounter for screening for malignant neoplasm of colon (principal); D12.7 Benign neoplasm of rectosigmoid junction; K62.1 Rectal polyp; K57.30 Diverticulosis of large intestine without perforation or abscess without bleeding; E78.5 Hyperlipidemia, unspecified; G50.0 Trigeminal neuralgia; K59.00 Constipation, unspecified
CPT/HCPCS: 45380; 82947; 88305; J2003; J2704

== ENCOUNTER → 2025-02-06 05:35 | Outpatient (BNV) | payer MEDICARE, SELFPAY | PROVIDERS: PCP Internal Medicine; Visit Provider Surgery | DX: Z12.11 Encounter for screening for malignant neoplasm of colon (principal); K63.5 Polyp of colon; K57.30 Diverticulosis of large intestine without perforation or abscess without bleeding | CPT/HCPCS: 45380 ==